=== PATIENT | female | born 1940 | race African-American/Black ===

== ENCOUNTER 2020-08-06 14:18 | Emergency (ER) | payer MEDICARE, MEDICAID ==
[~2020-08-06] VITALS: Ht 170.2 cm; Wt 54.0 kg
[2020-08-06 16:15] LABS: CLARITY URINE CLEAR (CLEAR); COLOR URINE YELLOW (YELLOW); KETONES URINE NEGATIVE (NEGATIVE); LEUKOCYTE ESTERASE URINE 1+ (NEGATIVE); NITRITE URINE NEGATIVE (NEGATIVE); OCCULT BLOOD URINE NEGATIVE (NEGATIVE); PROTEIN URINE 1+ (NEGATIVE); SPECIFIC GRAVITY URINE 1.011 (1.005-1.030); UROBILINOGEN URINE 0.2 E.U./dL (0.2-1.0)
[2020-08-06 16:25] LABS: BASOPHILS % 0.8 % (0.0-2.0); EOSINOPHILS % 1.4 % (0.0-5.0); HEMATOCRIT. 42.6 % (36.0-48.0); HEMOGLOBIN. 13.7 g/dL (12.0-16.0); LYMPHOCYTES % 45.6 % (20.0-50.0); MEAN CORPUSCULAR HEMOGLOBIN 26.4 pg (28.0-32.0); MEAN CORPUSCULAR VOLUME 82.2 fL (81.0-99.0); MEAN PLATELET VOLUME 8.6 fl (7.4-10.4); MONOCYTES % 4.4 % (2.0-8.0); NEUTROPHILS % 47.8 % (40.0-76.0); PLATELET 224 x1000/uL (130-400); RED BLOOD CELL COUNT 5.18 mill/uL (4.2-5.4); RED CELL DISTRIBUTION WIDTH 17.1 % (11.6-14.6)
[2020-08-06 16:26] LABS: CHLORIDE 114 mEq/L (98-107)
[2020-08-06 16:28] LABS: *AMPHETAMINES SCREEN URINE NEGATIVE (NEGATIVE); *COCAINE SCREEN URINE NEGATIVE (NEGATIVE); CANNABINOID URINE SCREEN PRESUMTIVE POSITIVE (NEGATIVE); METHADONE URINE SCREEN NEGATIVE (NEGATIVE); OPIATES URINE SCREEN NEGATIVE (NEGATIVE); PHENCYCLIDINE URINE SCREEN NEGATIVE (NEGATIVE)
[2020-08-06 16:29] LABS: *BARBITURATES SCREEN URINE NEGATIVE (NEGATIVE); *BENZODIAZEPINES SCREEN URINE NEGATIVE (NEGATIVE)
[2020-08-06 16:41] LABS: ETHANOL BLOOD 310 mg/dL
[2020-08-06] MEDS ORDERED: NITR-87 MT (19:55)
[2020-08-06 20:39] VITALS: BP 118/76
[2020-08-06] MEDS ORDERED: NITROFURANTOIN 100MG M/M CAPSULE PO SCH (21:00)
== END 2020-08-06 20:40 | disposition home or self-care (01) ==
LOC: ER 14:25
DX: T51.91XA Toxic effect of unspecified alcohol, accidental (unintentional), initial encounter (principal); N30.00 Acute cystitis without hematuria; I49.9 Cardiac arrhythmia, unspecified; Y92.9 Unspecified place or not applicable
CPT/HCPCS: 36415; 80053; 80305; 80320; 81003; 85025; 93005; 99285; G0480